=== PATIENT | female | born 1995 | race African-American/Black ===

== ENCOUNTER 2018-07-03 01:14 | Emergency (ER) | payer OTHER ==
[~2018-07-03] VITALS: Ht 165.1 cm; Wt 90.7 kg
[2018-07-03] MEDS ORDERED: HALO5TAB12 PO (01:35)
[2018-07-03] MEDS ORDERED: COGENTIN PO (01:35)
--- NOTE | 2018-07-03 01:38 | NUR ---
Pt ambulates to ER accompanied by [employer] with c/o chronic rectal pain. AAOX4. Pt states she hears voices but the voices tell her jokes. Denies SI/HI. VSS.
--- NOTE | 2018-07-03 05:17 | NUR ---
Patient discharged to home in stable conditon. Written and verbal after care instructions given. Patient verbalizes understanding of instructions. Pt ambulates out of ER in steady gait. All belongings with pt. NAD noted. VSS.
[2018-07-03 05:26] VITALS: BP 121/71
== END 2018-07-03 05:26 | disposition home or self-care (01) ==
LOC: ER 01:19
DX: F20.9 Schizophrenia, unspecified (principal); F17.200 Nicotine dependence, unspecified, uncomplicated; Z59.0 Homelessness
CPT/HCPCS: A4663